=== PATIENT | male | born 1985 | race Caucasian/White ===

== ENCOUNTER → 2019-12-11 09:47 | Outpatient (BNVA) | payer OTHER, SELFPAY | PROVIDERS: Visit Provider Otolaryngology | DX: H93.90 Unspecified disorder of ear, unspecified ear (principal); H69.80 Other specified disorders of Eustachian tube, unspecified ear; J35.01 Chronic tonsillitis; J34.2 Deviated nasal septum; J30.9 Allergic rhinitis, unspecified | CPT/HCPCS: 99213; 99214 ==

== ENCOUNTER → 2020-01-22 09:37 | Outpatient (BNVA) | payer OTHER, SELFPAY | PROVIDERS: Visit Provider Otolaryngology | DX: H93.90 Unspecified disorder of ear, unspecified ear (principal); H69.80 Other specified disorders of Eustachian tube, unspecified ear; J35.01 Chronic tonsillitis; J34.2 Deviated nasal septum; J30.9 Allergic rhinitis, unspecified | CPT/HCPCS: 96372; 99214 ==

== ENCOUNTER → 2020-04-13 15:02 | Outpatient (BNVA) | payer OTHER, SELFPAY | PROVIDERS: Visit Provider Emergency Medicine | DX: R50.9 Fever, unspecified (principal); R68.89 Other general symptoms and signs | CPT/HCPCS: 87400; 87635 ==

== ENCOUNTER 2020-04-16 07:29 | Emergency (ER) | payer OTHER, SELFPAY ==
[2020-04-16 07:34] VITALS: BP 142/98; PULSE 83; RESP 20; TEMP 36.7; O2SAT 100; BMI 27.7
--- NOTE | 2020-04-16 07:44 | W.ED.HA ---
HPI - Headache General: Chief Complaint: Headache Stated Complaint: HEAD PRESSURE/COVID TEST DONE 04/13 Time Seen by Provider: 04/16/20 07:36 History of Present Illness: HPI Narrative: Patient is a 35-year-old male who comes to the ED with headache. Patient has no past medical history of migraines. Headache started approximately last . It has progressed and gotten worse. He describes the headache as intense pressure in his head and in particularly behind both eyes. He rates the pain a 9 out of 10. He also describes seeing aura. He also has photophobia and nausea. Yesterday patient was seen at [facility] and [place] and he was given Toradol and an antinausea med. He says that brought him some relief that night but today he woke up and headache was back. He describes having some episodic numbness/tingling sensation in his hands and feet bilaterally this morning. Denies any weakness, abdominal pain, bladder or bowel symptoms. Patient endorses subjective fevers over the past week. Associated symptoms: Reports fever(s); Deny chest pain, nausea, rash or vomiting Review of Systems Const: Reports: fever(s); Denies: chills or fatigue Eyes: Denies: change in vision or eye discomfort ENMT: Denies: throat pain, odynophagia, nasal discharge or nasal congestion Card: Denies: chest pain, palpitations, edema, swelling of feet/ankles, dyspnea on exertion or orthopnea Resp: Denies: dyspnea, productive cough or non-productive cough GI: Denies: abdominal pain, nausea, vomiting, diarrhea, constipation or hematochezia : Denies: flank pain, difficulty urinating, dysuria or hematuria Musc: Denies: neck pain, back pain or extremity swelling Skin/Breast: Denies: rash or new lesions Neuro: Reports: headache(s) and numbness in extremities (bilateral episodic numbness in hands and feet this morning); Denies: weakness in extremities PFSH ED PFSH: Family History Father CAD (coronary artery disease) Mother Cancer Grandfather Cancer Diabetes Grandmother Cancer Diabetes Social History Smoking and tobacco status: never smoked Desire information about substance/drug rehabilitation?: No History of recent travel: No Current gender identity: Male Physical Exam Const: COMMON NORMALS: patient oriented x3, healthy appearing and alert GENERAL APPEARANCE: cooperative; not comfortable (Patient is uncomfortable due to headache and is sitting in a dark room when I entered.) HENMT: COMMON NORMALS: normocephalic HEAD & SCALP: normocephalic MOUTH: Normal oral and palatal mucosa present THROAT: posterior oropharynx normal and uvula midline Eye: COMMON NORMALS: Equal, round and reactive pupils present, EOMs intact bilaterally, conjunctivae normal and normal visual kenny by confrontation CONJUNCTIVA: Yes conjunctivae normal PUPIL: Yes Equal, round and reactive pupils present Neck/C-Spine: COMMON NORMALS: supple GENERAL: Yes normal visual inspection Resp: COMMON NORMALS: normal respiratory effort, No retractions, No use of accessory muscles and clear to auscultation bilaterally AUSCULTATION: clear to auscultation bilaterally Cardio: COMMON NORMALS: regular rate, regular rhythm, S1 normal heart sound present, S2 normal heart sound present, No gallops present (Cardio), No clicks present (Cardio), No murmurs present (Cardio) and Peripheral pulses 2+ throughout RATE: regular rate RHYTHM: regular rhythm HEART SOUNDS: S1 normal heart sound present and S2 normal heart sound present PERIPHERAL PULSES: Peripheral pulses 2+ throughout GI: COMMON NORMALS: Normal to inspection, nondistended, normoactive bowel sounds present, Soft to palpation, non-tender and no masses PALPATION: Yes Soft to palpation : COMMON NORMALS: Yes no CVA tenderness BLADDER/KIDNEY EXAM: Yes no CVA tenderness Back/Pelvis: COMMON NORMALS: no CVA tenderness Extremity: COMMON NORMALS: normal to inspection and no pedal edema Neuro: COMMON NORMALS: patient oriented x3, CN's II-XII intact bilaterally, moves all extremities, no focal motor deficits and no sensory deficits noted SENSORIUM/ORIENTATION: Yes alert COORDINATION/BALANCE: yjryti-ob-cycx test normal and jiyi-ru-[id number] test normal SENSORY EXAM: Yes extremities (intact) MOTOR EXAM: 5/5 motor strength present throughout COORDINATION: inxcda-[id number] test normal and ldgf-eg-[id number] test normal Skin: COMMON NORMALS: no rashes or lesions noted GENERAL SKIN EXAM: no rashes or lesions noted and dry skin Course Reevaluation(s): Reevaluation #1: After getting IV fluids and migraine cocktail patient rates migraine of 1-2 out of 10. When patient first got to the ED his migraine was rated at 9 out of 10. Patient feels a lot better and is ready to go home. Time: 09:11 Vital Signs: Vital signs: Vital Signs Temperature 98.3 F 04/16/20 09:26 Pulse Rate 77 04/16/20 09:26 Respiratory Rate 16 04/16/20 09:26 Blood Pressure 123/84 04/16/20 09:26 Pulse Oximetry 99 04/16/20 09:26 MDM - Headache MDM Narrative: Medical decision making narrative: Patient is a 35-year-old male who comes into the ED with migraine-like symptoms. Patient had retro-orbital pain, photophobia, aura and nausea. Physical exam showed photophobia, all neurological exam findings were normal. CT of head showed no acute findings. Patient was given IV fluids and migraine cocktail which greatly reduced patient's migraine pain. Patient was discharged and told to follow-up with PCP in 7 days for reevaluation. Patient understood and agreed with plan. Imaging Data^: CT Head: Attestation: I personally reviewed and interpreted this imaging study as follows: Radiologist's impression: [address] [place] [address] CT Scan Report Signed Patient: Gerald Reyes Unit #: [id number] : 1985 Age/Sex: 35 / M ADM Date: 04/16/20 Loc: ER Room/Bed: Attending Dr: Ordering Provider/Ordering MD: Bryan Mcgregor Date of Service: 04/16/20 Procedure(s): CT head wo con* [id number] Accession Number(s): [id number] Report Number: [id number] WS: [id number] CT HEAD NONCONTRAST HISTORY: severe headache described as pressure TECHNIQUE: Contiguous axial imaging performed through the brain in 2.5 mm imaging. Bone and soft tissue windows. Sagittal and coronal reformats reviewed. All CT scans at [facility] use at least one of these dose optimization techniques: automated exposure control; mA and/or kV adjustment per patient size (includes targeted exams where dose is matched to clinical indication); or iterative reconstruction. DLP: 1049.5 mGy.cm COMPARISON: None available. No acute intracranial hemorrhage, midline shift or mass effect. No atrophy or prior infarcts or herniation. Ventricles: Normal size with no hydrocephalus. No inferior displacement of cerebellar tonsils. Clivus and pituitary gland are negative. Paranasal sinuses: As visualized are clear. Mastoid air cells: Well pneumatized. Calvarium and scalp: Skull is intact with no soft tissue edema or swelling. CT/CT head wo con* [id number] IMPRESSION: 1. No acute intracranial hemorrhage or edema. 2. No significant sinus disease. 3. Negative CT head. Dictated By: Carmen Gudino DO Signed By: Carmen Gudino DO Signed Date/Time: 04/16/20856 DD/ 5 Discharge Plan Discharge Patient Disposition: Home, Self-Care Clinical Impression: Migraine Qualifiers: Migraine type: with aura Status migrainosus presence: with status migrainosus Intractability: not intractable Qualified Code(s): G43.101 - Migraine with aura, not intractable, with status migrainosus Condition: Stable Prescriptions: No Action pseudoephedrine HCl [Sudafed 12 Hour] 120 mg tablet extended release 120 mg PO BID PRN (Reason: nasal congestion) Qty: 30 RF: 0 oseltamivir [Tamiflu] 75 mg capsule 75 mg PO BID 5 Days Qty: 10 RF: 0 montelukast [Singulair] 10 mg tablet 10 mg PO DAILY RF: 0 loratadine [Claritin] 10 mg tablet 10 mg PO DAILY PRN (Reason: unknown) RF: 0 cetirizine [Zyrtec] 10 mg tablet 10 mg PO DAILY PRN (Reason: unknown) RF: 0 Tylenol Extra Strength 500 mg Tablet 500 - 1,000 mg PO PRN RF: 0 Discharge Orders: Discharge Order (Routine); Ordered 04/16/20 Ordered By: Bryan Mcgregor Discharge Diet: Regular Discharge Activity: Resume usual activity and Increase activity as tolerated Patient Instructions: Headache - Migraine (Adult) Activity Restrictions/Additional Instructions: Go home and rest for the day. Drink plenty of fluids and stay hydrated. You can take Tylenol or ibuprofen as needed for any headache. Follow-up with your PCP in 7 to 10 days for reevaluation. Return to ED if symptoms worsen. Discharge Date/Time: 04/16/20 09:29 Coding Level of Care Code ED Rn Supplemental for Chg Fwd Exam Comprehensive
--- NOTE | 2020-04-16 07:55 | CT_ITS ---
WS: [id number] CT HEAD NONCONTRAST HISTORY: severe headache described as pressure TECHNIQUE: Contiguous axial imaging performed through the brain in 2.5 mm imaging. Bone and soft tiss ue windows. Sagittal and coronal reformats reviewed. All CT scans at [facility] use at le ast one of these dose optimization techniques: automated exposure control; mA and/or kV adjustment pe r patient size (includes targeted exams where dose is matched to clinical indication); or iterative r econstruction. DLP: 1049.5 mGy.cm COMPARISON: None available. No acute intracranial hemorrhage, midline shift or mass effect. No atrophy or prior infarcts or herniation. Ventricles: Normal size with no hydrocephalus. No inferior displacement of cerebellar tonsils. Clivus and pituitary gland are negative. Paranasal sinuses: As visualized are clear. Mastoid air cells: Well pneumatized. Calvarium and scalp: Skull is intact with no soft tissue edema or swelling. CT/CT head wo con* [id number] IMPRESSION: 1. No acute intracranial hemorrhage or edema. 2. No significant sinus disease. 3. Negative CT head.
[2020-04-16] MEDS: ketorolac 30 mg/mL INJ IVP (08:06)
[2020-04-16] MEDS: diphenhydrAMINE 50 mg/mL SDV 1mL 25 MG IVP (08:06)
[2020-04-16] MEDS: sodium chloride 0.9% 1,000 ML 999 ML IV (08:07)
[2020-04-16] MEDS: dexamethasone 10 mg/mL INJ IVP (08:07)
[2020-04-16] MEDS: metoclopramide 5 mg/mL SDV 2 mL 10 MG IVP (08:07)
[2020-04-16 08:16] VITALS: BP 119/87; PULSE 91; RESP 20; O2SAT 98
--- NOTE | 2020-04-16 08:19 | PC.NURSE ---
SEEN AT [facility] IN [facility]. WAS GIVEN 2 IM MEDS AND SWABBED FOR FLU AND COVID, BOTH WERE NEGATIVE.
[2020-04-16 08:28] VITALS: BP 124/83; PULSE 74; RESP 18; O2SAT 97
--- NOTE | 2020-04-16 08:29 | PC.NURSE ---
BACK FROM CT, FLUIDS INFUSING. AOX4, OFFERED WATER.
[2020-04-16 09:02] VITALS: BP 122/77; PULSE 65; RESP 16; O2SAT 98
--- NOTE | 2020-04-16 09:03 | PC.NURSE ---
STATES PAIN IS A DULL 4. FLUIDS INFUSING AND LIGHTS OFF. NO ACUTE DISTRESS. CONTINUE TO MONITOR
[2020-04-16 09:26] VITALS: BP 123/84; PULSE 77; RESP 16; TEMP 36.8; O2SAT 99
== END 2020-04-16 09:29 | disposition home or self-care (01) ==
PROVIDERS: Emergency Provider Physician Assistant
DX: G43.101 Migraine with aura, not intractable, with status migrainosus (principal)
CPT/HCPCS: 12345; 70450; 96361; 96374; 96375; 99282; 99283; J1100; J1200; J1885; J2765; J7030

== ENCOUNTER → 2021-11-18 09:54 | Outpatient (BNVA) | payer OTHER, SELFPAY | PROVIDERS: Visit Provider Nurse Practitioner Family | DX: J04.0 Acute laryngitis (principal); H69.83 Other specified disorders of Eustachian tube, bilateral; J02.9 Acute pharyngitis, unspecified | CPT/HCPCS: 87071; 87880 ==